=== PATIENT | female | born 1960 | race Caucasian/White ===

== ENCOUNTER 2019-10-11 20:12 | Inpatient (IN) ==
[2019-10-11 21:07] LABS: Basophils % 0.7 %; Eosinophils % 0.3 %; Hemoglobin 15.1 g/dL (11.5-15.4); Immature Granulocytes % 0.3 % (0-4); Lymphocytes # 1.4 K/mcL (0.6-4.6); Lymphocytes % 45.6 %; Mean Corpuscular HGB Conc 34.3 g/dL (31.6-35.5); Mean Corpuscular Hemoglobin 30.4 pg (28.0-33.3); Mean Corpuscular Volume 88.5 fL (83.0-100.0); Mean Platelet Volume 10.1 fL (9.4-12.4); Monocytes # 0.3 K/mcL (0.0-1.3); Monocytes % 10.5 %; Neutrophils # 1.3 K/mcL (1.6-8.9); Platelet Count 151 K/mcL (140-400); Red Blood Count 4.97 M/mcL (3.82-4.97); Segmented Neutrophils % 42.6 %; White Blood Count 3.1 K/mcL (4.3-11.1)
[2019-10-11 21:29] LABS: BUN/Creatinine Ratio 11 (6-26); Blood Urea Nitrogen 16 mg/dL (6-20); Calcium 8.9 mg/dL (8.6-10.3); Carbon Dioxide 24 mEq/L (23-29); Chloride 105 mEq/L (98-107); Glucose 109 mg/dL (70-105); Osmolality,Calculated 288 (280-300); Potassium 3.3 mEq/L (3.5-5.1); Sodium 138 mEq/L (136-145); eGFR For African Americans 44 (> 60); eGFR For Non-African Americans 36 (> 60)
[2019-10-11] MEDS ORDERED: Potassium Chloride Elixir 20 MEQ/15 ML UDC PO ONE (21:40)
[2019-10-11 22:13] LABS: C-Reactive Protein < 5 mg/L (Less than 10)
[2019-10-11 22:15] LABS: Troponin I < 0.03 ng/mL (< 0.04)
[2019-10-11] MEDS ORDERED: MethylPREDNISolone 40 MG/ML VIAL IVP ONE (23:06)
[2019-10-11] MEDS ORDERED: Naloxone 0.4 MG/ML INJ IVP PRN (23:06)
[2019-10-11] MEDS ORDERED: Doxycycline 200 MG in 0.9 % Sodium Chloride 100 ML IVPB ONE (23:11)
[2019-10-11] MEDS ORDERED: Ringers Solution, Lactated 1,000 ML IVC SCH (23:15)
[2019-10-11] MEDS: Ipratropium 1 PUFF INHALER IH SCH (23:57)
[2019-10-12] MEDS: Benzonatate 100 MG CAPSULE PO SCH ×4 (00:02→20:16)
[2019-10-12] MEDS: Nicotine 14 MG PATCH.TD24 TD SCH ×2 (00:02→09:16)
[2019-10-12 03:36] LABS: Basophils % 0.3 %; Hematocrit 43.8 % (35.3-44.9); Hemoglobin 14.7 g/dL (11.5-15.4); Immature Granulocytes % 0.3 % (0-4); Lymphocytes # 0.7 K/mcL (0.6-4.6); Lymphocytes % 23.3 %; Mean Corpuscular HGB Conc 33.6 g/dL (31.6-35.5); Mean Corpuscular Hemoglobin 30.4 pg (28.0-33.3); Mean Corpuscular Volume 90.5 fL (83.0-100.0); Mean Platelet Volume 10.1 fL (9.4-12.4); Monocytes # 0.1 K/mcL (0.0-1.3); Monocytes % 4.6 %; Neutrophils # 2.2 K/mcL (1.6-8.9); Nucleated Red Blood Cells 0.7 /100 WBC (0); Platelet Count 142 K/mcL (140-400); Red Blood Count 4.84 M/mcL (3.82-4.97); Segmented Neutrophils % 71.5 %; White Blood Count 3.1 K/mcL (4.3-11.1)
[2019-10-12 03:39] LABS: VBG HCO3 25 mEq/L (21-27); VBG PCO2 38 mmHg (41-51); VBG PH 7.41 pH Units (7.32-7.42); VBG PO2 148 mmHg (25-50)
[2019-10-12 03:43] LABS: INR 1.1
[2019-10-12 03:58] LABS: Albumin 4.1 g/dL (3.5-5.7); Bilirubin,Total 0.4 mg/dL (0.3-1.0); Calcium 8.8 mg/dL (8.6-10.3); Globulin 2.1 g/dL (2.4-3.5); Magnesium 2.1 mg/dL (1.6-2.6); Phosphorous 2.6 mg/dL (2.7-4.5); Potassium 4.1 mEq/L (3.5-5.1); Total Protein 6.2 g/dL (6.4-8.9)
[2019-10-12] MEDS: Ipratropium 1 PUFF INHALER IH SCH ×4 (04:09→22:12)
[2019-10-12 04:10] LABS: Thyroid Stimulating Hormone 1.487 mcIU/mL (0.340-5.600)
[2019-10-12 08:28] LABS: Estimated Average Glucose 123 mg/dl
[2019-10-12] MEDS: predniSONE 20 MG TABLET PO SCH (09:00)
[2019-10-12] MEDS ORDERED: Spironolactone 25 MG TABLET PO PRN (11:11)
[2019-10-12] MEDS ORDERED: *HR* LORazepam 0.5 MG TABLET PO PRN (11:11)
[2019-10-12] MEDS ORDERED: Doxycycline 100 MG in 0.9 % Sodium Chloride Mini Bag 100 ML IVPB SCH (12:00)
[2019-10-12] MEDS ORDERED: Furosemide 40 MG/4 ML VIAL IVP STA (17:17)
[2019-10-12] MEDS: Furosemide 40 MG TABLET PO SCH (20:15)
[2019-10-12] MEDS: Multivit/Ca/Min/Fe/FA 1 TAB TABLET PO SCH (20:15)
[2019-10-12] MEDS: BuPROPion XL (24 HR) 150 MG TABLET PO SCH (20:15)
[2019-10-12] MEDS: Doxycycline 100 MG CAPSULE PO SCH (20:16)
[2019-10-12] MEDS ORDERED: Famotidine 20 MG TABLET PO SCH (21:00)
[2019-10-12] MEDS ORDERED: Acetaminophen 325 MG TABLET PO ONE (21:39)
[2019-10-13] MEDS: *HR* Heparin 5,000 UNIT/ML VIAL SQ SCH ×2 (00:02→05:30)
[2019-10-13] MEDS: Ipratropium 1 PUFF INHALER IH SCH ×4 (03:54→22:33)
[2019-10-13 05:11] LABS: Basophils % 0.2 %; Hematocrit 42.1 % (35.3-44.9); Hemoglobin 14.5 g/dL (11.5-15.4); Immature Granulocytes % 0.3 % (0-4); Lymphocytes # 1.7 K/mcL (0.6-4.6); Mean Corpuscular HGB Conc 34.4 g/dL (31.6-35.5); Mean Corpuscular Hemoglobin 30.8 pg (28.0-33.3); Mean Corpuscular Volume 89.4 fL (83.0-100.0); Mean Platelet Volume 10.3 fL (9.4-12.4); Monocytes # 0.4 K/mcL (0.0-1.3); Monocytes % 6.8 %; Platelet Count 157 K/mcL (140-400); Red Blood Count 4.71 M/mcL (3.82-4.97); Red Cell Distribution Width 11.9 % (11.5-14.5); Segmented Neutrophils % 64.7 %
[2019-10-13 05:12] LABS: White Blood Count 6.2 K/mcL (4.3-11.1)
[2019-10-13 05:31] LABS: Calcium 8.8 mg/dL (8.6-10.3); Potassium 3.4 mEq/L (3.5-5.1)
[2019-10-13 05:32] LABS: C-Reactive Protein < 5 mg/L (Less than 10); Lactate Dehydrogenase 142 Units/L (140-271)
[2019-10-13 05:50] LABS: Ferritin 98 ng/mL (10-120)
[2019-10-13] MEDS: BuPROPion XL (24 HR) 150 MG TABLET PO SCH ×2 (09:41→21:13)
[2019-10-13] MEDS: Benzonatate 100 MG CAPSULE PO SCH ×3 (09:41→21:12)
[2019-10-13] MEDS: Nicotine 14 MG PATCH.TD24 TD SCH (09:41)
[2019-10-13] MEDS: Doxycycline 100 MG CAPSULE PO SCH (09:41)
[2019-10-13] MEDS: predniSONE 20 MG TABLET PO SCH (09:41)
[2019-10-13] MEDS: Furosemide 40 MG TABLET PO SCH ×2 (09:42→21:12)
[2019-10-13] MEDS ORDERED: Azithromycin 250 MG TABLET PO ONE (13:49)
[2019-10-13] MEDS: *HR* Enoxaparin 40 MG/0.4 ML SYRINGE SQ SCH (16:08)
[2019-10-13] MEDS ORDERED: *HR* Heparin 5,000 UNIT/ML VIAL SQ SCH (17:00)
[2019-10-13] MEDS: Famotidine 20 MG TABLET PO SCH (21:13)
[2019-10-13] MEDS: Multivit/Ca/Min/Fe/FA 1 TAB TABLET PO SCH (21:13)
[2019-10-14] MEDS: Ipratropium 1 PUFF INHALER IH SCH ×4 (03:56→21:49)
[2019-10-14 04:10] LABS: Basophils % 0.3 %; Eosinophils % 0.1 %; Hematocrit 44.3 % (35.3-44.9); Hemoglobin 15.2 g/dL (11.5-15.4); Immature Granulocytes % 0.6 % (0-4); Lymphocytes % 29.4 %; Mean Corpuscular HGB Conc 34.3 g/dL (31.6-35.5); Mean Corpuscular Hemoglobin 30.8 pg (28.0-33.3); Mean Corpuscular Volume 89.7 fL (83.0-100.0); Mean Platelet Volume 9.7 fL (9.4-12.4); Monocytes # 0.6 K/mcL (0.0-1.3); Monocytes % 8.4 %; Neutrophils # 4.1 K/mcL (1.6-8.9); Platelet Count 163 K/mcL (140-400); Red Blood Count 4.94 M/mcL (3.82-4.97); Segmented Neutrophils % 61.2 %; White Blood Count 6.7 K/mcL (4.3-11.1)
[2019-10-14 04:29] LABS: BUN/Creatinine Ratio 18 (6-26); Blood Urea Nitrogen 20 mg/dL (6-20); Carbon Dioxide 23 mEq/L (23-29); Chloride 107 mEq/L (98-107); Potassium 3.3 mEq/L (3.5-5.1); Sodium 140 mEq/L (136-145)
[2019-10-14 04:30] LABS: Calcium 8.7 mg/dL (8.6-10.3); Glucose 106 mg/dL (70-105); Osmolality,Calculated 293 (280-300); eGFR For African Americans > 60 (> 60); eGFR For Non-African Americans 50 (> 60)
[2019-10-14] MEDS ORDERED: Tiotropium 18 MCG inhalation IH SCH (10:00)
[2019-10-14] MEDS: Nicotine 14 MG PATCH.TD24 TD SCH (10:50)
[2019-10-14] MEDS: Benzonatate 100 MG CAPSULE PO SCH ×3 (10:51→20:32)
[2019-10-14] MEDS: BuPROPion XL (24 HR) 150 MG TABLET PO SCH ×2 (10:51→20:32)
[2019-10-14] MEDS: Furosemide 40 MG TABLET PO SCH ×2 (10:51→20:31)
[2019-10-14] MEDS: Budesonide/Formoterol 160/4.5 1 PUFF INH IH SCH ×2 (11:08→21:48)
[2019-10-14] MEDS ORDERED: Azithromycin 250 MG TABLET PO SCH (14:00)
[2019-10-14] MEDS: Fluticasone Propionate Nasal 50 MCG/SPRAY BOTTLE NS SCH (15:44)
[2019-10-14] MEDS: Azithromycin 250 MG TABLET PO SCH (17:38)
[2019-10-14] MEDS: *HR* Enoxaparin 40 MG/0.4 ML SYRINGE SQ SCH (17:38)
[2019-10-14] MEDS: Multivit/Ca/Min/Fe/FA 1 TAB TABLET PO SCH (20:32)
[2019-10-14] MEDS: Famotidine 20 MG TABLET PO SCH (20:32)
[2019-10-15] MEDS: Ipratropium 1 PUFF INHALER IH SCH ×4 (03:30→22:06)
[2019-10-15 04:33] LABS: Basophils % 0.2 %; Eosinophils % 0.2 %; Hematocrit 44.2 % (35.3-44.9); Immature Granulocytes % 0.9 % (0-4); Lymphocytes # 1.7 K/mcL (0.6-4.6); Lymphocytes % 37.7 %; Mean Corpuscular HGB Conc 33.9 g/dL (31.6-35.5); Mean Corpuscular Hemoglobin 30.3 pg (28.0-33.3); Mean Corpuscular Volume 89.3 fL (83.0-100.0); Mean Platelet Volume 9.9 fL (9.4-12.4); Monocytes # 0.5 K/mcL (0.0-1.3); Monocytes % 10.8 %; Neutrophils # 2.3 K/mcL (1.6-8.9); Platelet Count 183 K/mcL (140-400); Red Blood Count 4.95 M/mcL (3.82-4.97); Segmented Neutrophils % 50.2 %; White Blood Count 4.5 K/mcL (4.3-11.1)
[2019-10-15 04:53] LABS: Calcium 8.7 mg/dL (8.6-10.3); Potassium 3.7 mEq/L (3.5-5.1)
[2019-10-15] MEDS: Nicotine 14 MG PATCH.TD24 TD SCH (08:19)
[2019-10-15] MEDS ORDERED: Nicotine 14 MG PATCH.TD24 TD PRN (08:21)
[2019-10-15] MEDS: Fluticasone Propionate Nasal 50 MCG/SPRAY BOTTLE NS SCH (08:25)
[2019-10-15] MEDS: BuPROPion XL (24 HR) 150 MG TABLET PO SCH ×2 (08:25→21:42)
[2019-10-15] MEDS: Benzonatate 100 MG CAPSULE PO SCH ×3 (08:25→21:41)
[2019-10-15] MEDS: Furosemide 40 MG TABLET PO SCH ×2 (08:25→21:42)
[2019-10-15] MEDS: Budesonide/Formoterol 160/4.5 1 PUFF INH IH SCH ×2 (08:37→22:06)
[2019-10-15] MEDS: Azithromycin 250 MG TABLET PO SCH (17:08)
[2019-10-15] MEDS: *HR* Enoxaparin 40 MG/0.4 ML SYRINGE SQ SCH (17:08)
[2019-10-15] MEDS: Multivit/Ca/Min/Fe/FA 1 TAB TABLET PO SCH (21:41)
[2019-10-15] MEDS: Famotidine 20 MG TABLET PO SCH (21:42)
[2019-10-16] MEDS: Ipratropium 1 PUFF INHALER IH SCH ×2 (04:08→07:40)
[2019-10-16 04:53] LABS: Basophils % 0.4 %; Eosinophils % 0.2 %; Hematocrit 43.6 % (35.3-44.9); Hemoglobin 15.2 g/dL (11.5-15.4); Immature Granulocytes % 0.4 % (0-4); Lymphocytes # 1.8 K/mcL (0.6-4.6); Lymphocytes % 35.6 %; Mean Corpuscular HGB Conc 34.9 g/dL (31.6-35.5); Mean Corpuscular Hemoglobin 30.6 pg (28.0-33.3); Mean Corpuscular Volume 87.7 fL (83.0-100.0); Mean Platelet Volume 9.8 fL (9.4-12.4); Monocytes # 0.5 K/mcL (0.0-1.3); Neutrophils # 2.7 K/mcL (1.6-8.9); Platelet Count 169 K/mcL (140-400); Red Blood Count 4.97 M/mcL (3.82-4.97); Red Cell Distribution Width 11.9 % (11.5-14.5); Segmented Neutrophils % 53.4 %; White Blood Count 5.1 K/mcL (4.3-11.1)
[2019-10-16 05:11] LABS: Calcium 8.9 mg/dL (8.6-10.3); Potassium 3.5 mEq/L (3.5-5.1)
[2019-10-16] MEDS: Budesonide/Formoterol 160/4.5 1 PUFF INH IH SCH (07:41)
[2019-10-16] MEDS: Fluticasone Propionate Nasal 50 MCG/SPRAY BOTTLE NS SCH (08:35)
[2019-10-16] MEDS: Benzonatate 100 MG CAPSULE PO SCH (08:35)
[2019-10-16] MEDS: BuPROPion XL (24 HR) 150 MG TABLET PO SCH (08:35)
[2019-10-16] MEDS: Furosemide 40 MG TABLET PO SCH (08:35)
[2019-10-16 08:37] VITALS: BP 121/83
== END 2019-10-16 13:45 | disposition home or self-care (01) | DRG 177 ==
LOC: 2NENU 20:12 → EMEROOARM 20:12 → 2NENU 23:05 → SUATTDRO 10-13 09:13
PROVIDERS: ADMIT Internal Medicine; ATTEND Internal Medicine